=== PATIENT | female | born 1945 | race Hispanic/Latino ===

== ENCOUNTER → 2021-10-03 | Outpatient (CLI) | payer OTHER | END | disposition home or self-care (01) | LOC: RAH 14:48 | PROVIDERS: ATTEND Physical Medicine & Rehabilitation | DX: M48.061 Spinal stenosis, lumbar region without neurogenic claudication (principal); M47.26 Other spondylosis with radiculopathy, lumbar region; M54.16 Radiculopathy, lumbar region; M48.00 Spinal stenosis, site unspecified | CPT/HCPCS: 72148 ==